=== PATIENT | female | born 1985 | race Caucasian/White ===

== ENCOUNTER 2022-02-19 05:51 | Emergency (ER) | payer BC ==
[~2022-02-19] VITALS: Ht 162.6 cm; Wt 59.0 kg
--- NOTE | 2022-02-19 06:19 | NUR ---
TO ER BED 6. BIBS C/O H/A, DIZZY, COUGH, AND CONGESTION X 5 DAYS. PT TOOK TYLENOL AND MUCINEX WITH TEMPORARY RELIEF. CONNECTED TO MONITOR. NOT IN RESPIRATORY DISTRESS. AWAITING MD LINDA
[2022-02-19] MEDS ORDERED: predniSONE 20 MG TABLET ONE (06:46)
--- NOTE | 2022-02-19 06:48 | NUR ---
called lab for pcr swab
[2022-02-19] MEDS ORDERED: ALBUTEROL FS 2.5 MG/3 ML VIAL.NEB ONE (06:52)
[2022-02-19] MEDS ORDERED: ALBUTEROL FS 2.5 MG/3 ML VIAL.NEB NEB ONE (07:00)
[2022-02-19] MEDS ORDERED: predniSONE 20 MG TABLET PO ONE (07:00)
--- NOTE | 2022-02-19 07:15 | NUR ---
XRAY AT BEDSIDE
--- NOTE | 2022-02-19 07:23 | NUR ---
RT Heart rate increased from 97 to 117 post breathing treatment. RN aware.
--- NOTE | 2022-02-19 07:48 | NUR ---
COVID PCR COLLECTED AND SENT TO LAB
[2022-02-19] MEDS ORDERED: ALBU18HF2 INH (07:50)
[2022-02-19] MEDS ORDERED: PRED20TA PO (07:50)
[2022-02-19] MEDS ORDERED: DOXY100C2 PO (07:50)
[2022-02-19 08:05] VITALS: BP 141/84
--- NOTE | 2022-02-19 08:05 | NUR ---
Patient discharged to home in stable condition. Written and verbal after care instructions given. Patient verbalizes understanding of instruction.
== END 2022-02-19 08:06 | disposition home or self-care (01) ==
LOC: ER 05:59
DX: J18.9 Pneumonia, unspecified organism (principal); Z20.822 Contact with and (suspected) exposure to COVID-19; J06.9 Acute upper respiratory infection, unspecified; Z88.0 Allergy status to penicillin; R03.0 Elevated blood-pressure reading, without diagnosis of hypertension; Z86.16 Personal history of COVID-19
CPT/HCPCS: 71045; 94640; 99284; C9803; J7512; U0003